=== PATIENT | male | born 1955 | race Two or more races ===

== ENCOUNTER 2025-08-11 16:25 | Emergency (ER) | payer MEDICARE, SELFPAY ==
[2025-08-11] VITALS (8 sets, daily range): BP systolic 142–168; BP diastolic 87–101; PULSE 82–101; RESP 15–19; TEMP 36.7–36.9; O2SAT 96–100; BMI 25.0
--- NOTE | 2025-08-11 16:47 | EKG_ITS ---
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
--- NOTE | 2025-08-11 16:49 | PD.EDADULT ---
ED General RME/HPI General Chief complaint: Nausea/Vomiting/Diarrhea Stated complaint: VOMITTING Time Seen by Provider: 08/11/25 16:44 Arrival date/time: 08/11/25 16:25 CC: Nausea vomiting diarrhea HPI ongoing for 1 week. Last diarrhea was this morning last vomitus was approximately 45 minutes ago. Patient is a renal transplant patient with CKD, and diabetes. Transplant team from [facility]. Patient denies chest pain shortness of breath. EMS report stable vital signs and route. 1 round of Zofran given and route with minimal relief. Patient continues to complain of nausea without active vomiting. No other family members or ill that are around him that he is aware of. Patient states his renal doctor is Dr. Doyle. Related Data Home Medications ?Medication ?Instructions ?Recorded ?Confirmed bumetanide 2 mg tablet 2 mg PO BID 10/11/22 11/22/23 gabapentin 300 mg capsule 300 mg PO BID 10/11/22 11/22/23 levetiracetam 500 mg tablet 500 mg PO BID 10/11/22 11/22/23 calcium acetate(phosphat bind) 667 667 mg PO BID 07/21/23 11/22/23 mg capsule ferrous sulfate 325 mg (65 mg 325 mg PO BID 07/21/23 11/22/23 iron) tablet (FeroSul) valsartan 40 mg tablet 40 mg PO BID 07/21/23 11/22/23 carvedilol 25 mg tablet 12.5 mg PO BID 11/22/23 11/22/23 Previous Rx's ?Medication ?Instructions ?Recorded ondansetron 4 mg disintegrating 4 mg PO Q8H #10 tabs 08/11/25 tablet Allergies Allergy/AdvReac Type Severity Reaction Status Date / Time No Known Allergies Allergy Verified 11/22/23 10:39 Review of Systems Review of Systems Narrative Review of Systems: GEN: No fever, no chills, no weight loss EYES: No discharge, no visual changes, no pain HEENT: No ear pain, no congestion, no sore throat PULM: No shortness of breath, no cough, no congestion CV: No chest pain, no dyspnea on exertion, no palpitations GI: + nausea, + vomiting, + diarrhea, no pain, no constipation : No frequency, no urgency, no dysuria MUSC/SKEL: No joint pain, no back pain SKIN: No rash PSYCH: No hallucinations, no depression HEME/LYMPH: No easy bleeding or bruising tendencies NEURO: No weakness, no headache Past Medical History Past Medical History NEUROLOGIC: Positive Neurological Disorders, Seizures (takes medications) and Peripheral Neuropathy CARDIAC: Positive Cardiac Disorders and Hypertension; Negative Congestive Heart Failure RESPIRATORY: Positive Sleep Apnea (diagnosed 11/2023); Negative Chronic Obstructive Pulmonary Disease (COPD) GASTROINTESTINAL: Positive Gastrointestinal Disorders (dyspepsia,) GENITOURINARY: Positive Genitourinary Disorders, Renal Disease (kidney transplant) and Dialysis (MWF, fistula left arm) MUSCULOSKELETAL: Positive Musculoskeletal Disorders ENT: Positive Cataracts ENDOCRINE: Positive Endocrine Disorders and Diabetes Mellitus Type 2; Negative Diabetes Mellitus Type 1 HEMATOLOGIC: Positive Blood Disorders and Anemia (in past) OTHER HISTORY: Positive Measles; Negative Hospitalization, Falls, Blood Transfusions, Blood Transfusion Reaction, Anesthesia Reactions or Cancer Family History FAMILY HISTORY: Negative Family Anesthesia Reaction Surgical History SURGICAL: Negative Cardiac Surgery, Endocrine Surgery or Joint Replacement Social History SMOKING STATUS: Never smoker SUBSTANCE USE: does not use ED Exam Narrative Physical exam: [General: In mild discomfort but not in any acute distress Head normocephalic HEENT: Eyes pupils are PERRLA EOMs are intact mouth pink dry membranes uvula is midline swallow symmetrical within acceptable limits Neck is supple nontender Chest equal chest rise nontender to palpation Respiratory: Tachypneic, clear to auscultation no wheezes crackles or rubs CV: Rate rhythm is regular no murmurs rubs or clicks Abdomen is soft nontender no masses positive bowel sounds all 4 quadrants Back: No CVA tenderness no spinous process tenderness from cervical spine thoracic and lumbar spine Skin: Intact no petechiae rash induration ulceration or crepitus Extremities: Moving all extremity against resistance cap refill less than 2 seconds neurosensory intact Neuro: Awake alert oriented x3 Glascow coma 15 no focal deficits] Course Course Course Narrative: Blood pressure was noted to be 180/101 at 1831, patient given 20 of hydralazine. Laboratory results show no acute finding requires emergent or immediate intervention. Beta hydroxy was mildly elevated and the creatinine was elevated 1.8 however when compared to creatinine from 2 years ago which was greater than 4. At this time after 2 L the patient states he feels better, nausea is significantly reduced. Will repeat the CMP and beta hydroxy. If there is no worsening we will discharge the patient home. The patient has not had any vomiting or diarrhea since admission to this hospital. Repeat beta hydroxy is unchanged at 1.6, however creatinine has improved from 1.8-1.6 this time patient is good to be discharged home as there is no acute finding requires emergent or immediate intervention. I suspect this is all viral in nature. Quality Measures none Orders Category Date Time Status EKG (ED ONLY) *Do not use* NOW Care 08/11/25 16:47 Completed EKG (ED Only) Stat Exams 08/11/25 16:47 Draft B-Type Natriuretic Peptide Stat Lab 08/11/25 17:00 Completed Beta Hydroxybutyrate Stat Lab 08/11/25 17:00 Completed Beta Hydroxybutyrate Stat Lab 08/11/25 20:38 Completed CBC Stat Lab 08/11/25 17:00 Completed CMP [Comprehensive Metabolic Panel] Stat Lab 08/11/25 20:38 Completed COVID-19 Antigen (In-House) Stat Lab 08/11/25 16:52 Completed Comprehensive Metabolic Panel Stat Lab 08/11/25 17:00 Completed Drug Screen,Urine Stat Lab 08/11/25 18:16 Completed Influenza A & B Rapid Panel Stat Lab 08/11/25 16:52 Completed LDH (Lactate Dehydrogenase) Stat Lab 08/11/25 17:00 Completed Lactic Acid [Lactate (Lactic Acid)] Stat Lab 08/11/25 17:00 Completed Magnesium Stat Lab 08/11/25 17:00 Completed Partial Thromboplastin Time Stat Lab 08/11/25 17:00 Completed Procalcitonin Stat Lab 08/11/25 17:00 Completed Prothrombin Time with INR Stat Lab 08/11/25 17:00 Completed Troponin I Stat Lab 08/11/25 17:00 Completed Urinalysis, C/S if Indicated Stat Lab 08/11/25 18:06 Completed VBG [Venous Blood Gas] Stat Lab 08/11/25 17:00 Completed Ondansetron Inj [Zofran Inj] Med 08/11/25 16:47 Discontinued 4 mg IVP X1 ONE Ringers Lactated 1000 ml [Lactated Ringers] 1,000 ml Med 08/11/25 16:48 Discontinued IV 999 mls/hr Ringers Lactated 1000 ml [Lactated Ringers] 1,000 ml Med 08/11/25 16:48 Discontinued IV 999 mls/hr hydrALAZINE INJ [Apresoline Inj] Med 08/11/25 18:27 Discontinued 20 mg IVP X1 ONE Vital Signs Vital signs: Vital Signs Temperature 98.2 F 08/11/25 16:33 Pulse Rate 82 08/11/25 16:33 Respiratory Rate 18 08/11/25 16:33 Blood Pressure 142/96 H 08/11/25 16:33 Pulse Oximetry (%) 98 08/11/25 16:33 Oxygen Delivery Method Room Air 08/11/25 16:33 Discharge Plan Plan Patient Disposition: HOME (Self Care) Patient condition on transfer: Stable Prescriptions/Referrals Prescriptions/Med Rec: New ondansetron 4 mg tablet,disintegrating 4 mg PO Q8H Qty: 10 0RF No Action carvedilol 25 mg Tablet 12.5 mg PO BID Rx Instructions: must administer with a meal/food bumetanide 2 mg tablet 2 mg PO BID Patient Comments: TAKE 1 TABLET BY MOUTH ONCE DAILY levetiracetam 500 mg tablet 500 mg PO BID Patient Comments: TAKE 1 TABLET BY MOUTH IN THE MORNING AND 2 IN THE EVENING gabapentin 300 mg capsule 300 mg PO BID Patient Comments: TAKE 1 CAPSULE BY MOUTH THREE TIMES DAILY ferrous sulfate [FeroSul] 325 mg (65 mg iron) tablet 325 mg PO BID Patient Comments: TAKE 1 TABLET BY MOUTH TWICE DAILY valsartan 40 mg tablet 40 mg PO BID Patient Comments: TAKE 1 TABLET BY MOUTH TWICE DAILY calcium acetate(phosphat bind) 667 mg capsule 667 mg PO BID Patient Comments: TAKE 1 CAPSULE BY MOUTH THREE TIMES DAILY FOR 1 MONTH Referrals: No Primary/Family,Physician [Primary Care Provider] - In 1 week Problem List Clinical Impression: Nausea & vomiting, Diarrhea Patient/Caregiver Discharge Instructions Education Materials: Self-Care for Vomiting and Diarrhea, ED Diarrhea, Unknown Cause, ED Diet for Vomiting or ... Additional Instructions: Rest drink plenty of fluid take the antinausea medication as prescribed with is worsening of symptoms return to the emergency room for reevaluation. Print Language: Khmer Stand Alone Forms: Madeleine Award Info., Patient Portal Info Letter, Work/School Release PA/SHRIMP CLEANER Supervising Physician PA/SHRIMP CLEANER Supervising Physician: Brian Cooley ENP [facility] Clinical Information Provided by: patient Medical Records reviewed [facility] Meds/Rx considered, not ordered None Labs/Rad/Tests considered, not ordered None Chronic Illness/Social Conditions Explain: Renal transplant diabetes hypertension seizure disorder EKG Interpretation EKG #1: EKG Interpretation: EKG performed at 1655 shows ventricular rate of 93 SC interval 145 QRS of 85 QTc of 384 this is sinus rhythm. Labs Labs: interpreted by ma Lab(s) Interpretation(s): CBC shows no acute leukocytosis anemia thrombocytopenia Coags within excepted limits VBG shows a pH of 7.23 pCO2 45 pO2 of 31 base deficit of 3 CMP shows sodium 134 creatinine 1.8 glucose 147 mag 1.5 no other electrolyte imbalances renal impairment transaminitis or T. bili elevation Troponin is undetectable BNP is undetectable Beta-hydroxybutyrate 1.6 Influenza and COVID are negative Medication Administration(s) Medication Administration History Discontinued Medications Hydralazine HCl (Hydralazine Inj 20 Mg/Ml Vial) 20 mg IVP X1 ONE Stop: 08/11/25 18:28 Last Admin: 08/11/25 18:48 Dose: 20 mg Documented By: BD Lactated Ringer's (Lactated Ringers) 1,000 mls @ 999 mls/hr IV .Q1H1M ONE Stop: 08/11/25 17:48 Last Infusion: 08/11/25 18:11 Dose: Infused Documented By: Admin: 08/11/25 16:58 Dose: 999 mls/hr Documented By: BY Lactated Ringer's (Lactated Ringers) 1,000 mls @ 999 mls/hr IV .Q1H1M ONE Stop: 08/11/25 17:48 Last Infusion: 08/11/25 17:59 Dose: Infused Documented By: Admin: 08/11/25 16:58 Dose: 999 mls/hr Documented By: BY Ondansetron HCl (Ondansetron Inj 2 Mg/Ml Inj 2 Ml) 4 mg IVP X1 ONE; Protocol Stop: 08/11/25 16:48 Last Admin: 08/11/25 16:58 Dose: 4 mg Documented By: BY
[2025-08-11] MEDS: RINGERS LACTATED 1000 ML 1,000 ML 999 ML IV ×2 (16:58)
[2025-08-11] MEDS: ONDANSETRON INJ 2 MG/ML INJ 2 ML 4 MG IVP (16:58)
[2025-08-11 17:11] LABS: Lactate (Lactic Acid) 1.7 mMol/L (0.4-2.0)
[2025-08-11 17:13] LABS: Base Excess, Venous -3 (-3-3); O2 Saturation, Venous 58 % (96-97); PCO2, Venous 45 mmHg (36-56); PO2, Venous 31 mmHg (15-58); pH, Venous 7.32 (7.33-7.66)
[2025-08-11 17:21] LABS: Basophils # (Auto) 0.0 Thou/mm3 (0.0-0.2); Basophils % (Auto) 1 % (0-2.5); Eosinophils # (Auto) 0.0 Thou/mm3 (0.0-0.5); Eosinophils % (Auto) 0 % (0-10); Hematocrit 43.4 % (41.0-53.0); Hemoglobin 15.4 g/dL (13.5-16.0); Immature Granulocytes Auto 0.05 Thou/mm3 (0.00-0.00); Lymphocytes # (Auto) 0.6 Thou/mm3 (1.0-4.8); Lymphocytes % (Auto) 14 % (10-50); Mean Corpuscular HGB Conc 35.5 g/dl (31.0-37.0); Mean Corpuscular Hemoglobin 31.4 pg (25.0-35.0); Mean Corpuscular Volume 89 fL (80-100); Monocytes # (Auto) 0.5 Thou/mm3 (0.0-0.8); Monocytes % (Auto) 12 % (0-12); Neutrophils # (Auto) 3.2 Thou/mm3 (1.8-7.7); Neutrophils % (Auto) 73 % (37-80); Nucleated Red Blood Cell # 0.00 Thou/mm3 (0.00-0.00); Nucleated Red Blood Cell % 0 /100 WBC (0); Platelet Count 179 Thou/mm3 (140-440); RDW Standard Deviation 41.1 fL (35.1-43.9); Red Blood Count 4.90 Miln/mm3 (4.50-5.90); White Blood Count 4.3 Thou/mm3 (3.8-10.6)
[2025-08-11 17:34] LABS: Beta Hydroxybutyrate 1.6 mmol/L (<0.6)
[2025-08-11 17:47] LABS: INR 1.0 (0.9-1.3); Partial Thromboplastin Time 27.3 Seconds (22.0-36.0); Prothrombin Time 11.0 Seconds (9.0-12.2)
[2025-08-11 17:52] LABS: Influenza A Ag Negative; Influenza B Ag Negative
[2025-08-11 17:53] LABS: COVID-19 Antigen (In-House) Negative (Negative)
[2025-08-11 17:54] LABS: B-Type Natriuretic Peptide 32 pg/mL (0-100)
[2025-08-11 18:02] LABS: Alanine Aminotransferase 13 U/L (10-49); Albumin, Serum 4.7 gm/dL (3.4-4.8); Albumin/Globulin Ratio 2.0 (1.2-2.2); Alkaline Phosphatase 77 U/L (46-116); Anion Gap 13 (7-16); Aspartate Amino Transferase 10 U/L (0-34); BUN/Creatinine Ratio 11 Ratio (12-20); Bilirubin,Total 1.0 mg/dL (0.3-1.2); Blood Urea Nitrogen 19 mg/dL (9-23); Calcium 9.8 mg/dL (8.3-10.6); Calcium (Corrected) 9.8 mg/dL (8.5-10.1); Carbon Dioxide 20.8 mMol/L (20.0-31.0); Chloride 100 mMol/L (98-107); Creatinine (Component) 1.8 mg/dL (0.6-1.3); Estimated Creatinine Clearance 40.6 mL/min (>60); Globulin 2.4 gm/dL (2.3-3.5); Glucose 147 mg/dL (74-106); LDH (Lactate Dehydrogenase) 184 U/L (120-246); Magnesium 1.5 mg/dL (1.6-2.6); Osmolality,Calculated 273 (275-295); Potassium 4.5 mMol/L (3.4-5.1); Procalcitonin < 0.04 ng/ml (0.0-0.49); Sodium 134 mMol/L (136-145); Total Protein 7.1 gm/dL (5.7-8.2); Troponin I < 0.020 ng/mL (0.0-0.045); eGFR 40 See Note
[2025-08-11 18:19] LABS: Collection Type, Urine Clean Catch; Squamous Epithelial Cell,Urine 0 /hpf (0-5)
[2025-08-11 18:24] LABS: Bilirubin,Urine Negative (Negative); Blood,Urine Negative (Negative); Clarity,Urine Clear (Clear/Hazy); Color,Urine Colorless (Lt Yel-Yel); Culture Indicated,Urine Not Indicated; Glucose, Urine Negative (Negative); Ketones,Urine 1+ (Negative); Leukocyte Esterase,Urine Negative (Negative); Nitrite,Urine Negative (Negative); PH,Urine 6.0 (5.0-7.0); Protein,Urine Negative (Neg - Trace); RBC,Urine 3 /hpf (0-3); Specific Gravity,Urine 1.010 (1.001-1.035); Urobilinogen,Urine Negative mg/dL (0.0-1.0); WBC,Urine 1 /hpf (0-5)
[2025-08-11 18:33] LABS: Amphetamine/Methamp Scrn,U Negative (Negative); Barbiturate Screen,Urine Negative (Negative); Benzodiazepines Screen,Urine Negative (Negative); Benzoylecgonine Screen, Ur Negative (Negative); Fentanyl Screen,Urine Negative (Negative); Opiate Screen,Urine Negative (Negative); THC Screen,Urine Positive (Negative)
[2025-08-11] MEDS: hydrALAZINE INJ 20 MG/ML VIAL IVP (18:48)
[2025-08-11 20:59] LABS: Beta Hydroxybutyrate 1.6 mmol/L (<0.6)
[2025-08-11 21:14] LABS: Alanine Aminotransferase 10 U/L (10-49); Albumin, Serum 4.1 gm/dL (3.4-4.8); Albumin/Globulin Ratio 1.9 (1.2-2.2); Alkaline Phosphatase 69 U/L (46-116); Anion Gap 11 (7-16); Aspartate Amino Transferase 17 U/L (0-34); BUN/Creatinine Ratio 10 Ratio (12-20); Bilirubin,Total 0.9 mg/dL (0.3-1.2); Blood Urea Nitrogen 15 mg/dL (9-23); Calcium 9.4 mg/dL (8.3-10.6); Calcium (Corrected) 9.4 mg/dL (8.5-10.1); Carbon Dioxide 20.7 mMol/L (20.0-31.0); Chloride 103 mMol/L (98-107); Creatinine (Component) 1.5 mg/dL (0.6-1.3); Estimated Creatinine Clearance 48.7 mL/min (>60); Globulin 2.2 gm/dL (2.3-3.5); Glucose 118 mg/dL (74-106); Osmolality,Calculated 271 (275-295); Potassium 4.7 mMol/L (3.4-5.1); Sodium 135 mMol/L (136-145); Total Protein 6.3 gm/dL (5.7-8.2); eGFR 50 See Note
== END 2025-08-11 21:56 | disposition home or self-care (01) ==
PROVIDERS: Registered Nurse General Practice; Emergency Provider Emergency Medicine
DX: R11.2 Nausea with vomiting, unspecified (principal); R19.7 Diarrhea, unspecified; I10 Essential (primary) hypertension
CPT/HCPCS: 36415; 80053; 80307; 81001; 82010; 82803; 83605; 83615; 83735; 83880; 84145; 84484; 85025; 85610; 85730; 87502; 87811; 93005; 96361; 96374; 96375; 99283; J0360; J2405; J7120

== ENCOUNTER 2025-08-16 01:00 | Emergency (ER) | payer MEDICARE, SELFPAY ==
[2025-08-16] VITALS (13 sets, daily range): BP systolic 123–175; BP diastolic 84–128; PULSE 83–104; RESP 16–19; TEMP 36.6–36.9; O2SAT 97–100; BMI 29.5
--- NOTE | 2025-08-16 01:13 | EKG_ITS ---
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
--- NOTE | 2025-08-16 02:28 | XR_ITS ---
EXAMINATION: PA chest single view TECHNIQUE: Upright PA chest single view Date and time: August 16, 2025, 0253 hours, comparison January 09, 2023 INDICATIONS: Chest pain shortness of breath nausea beginning 1 week ago. FINDINGS: Significant right base pneumonia Small to moderate right pleural fluid Normal heart size Subtle nodular densities in the left upper lobe IMPRESSION: Significant right base pneumonia Recommend AP lordotic chest follow-up to exclude nodular densities in the left upper lobe
--- NOTE | 2025-08-16 02:29 | PD.EDRME ---
Rapid Medical Screening Exam RME Arrival date/time: 08/16/25 01:00 70M with history of CHF< HTN, DM, GERD, seizures, and ESRD s/p kidney transplant presents to ED with continued lower chest/epigastric pain and N/V, as well as ab bloating. Patient was recently here for this was positive marijuana screen. Patient did have some non-bloody diarrhea during previous visit, but not anymore. Chief Complaint: Chest Pain Time Seen by Provider: 08/16/25 01:19 Vital signs: Vital Signs Temperature 98.5 F 08/16/25 01:48 Pulse Rate 88 08/16/25 01:48 Respiratory Rate 16 08/16/25 01:48 Blood Pressure 175/91 H 08/16/25 01:48 Pulse Oximetry (%) 98 08/16/25 01:48 Oxygen Delivery Method Room Air 08/16/25 01:48 Exam: Some ab distention, but no focal tenderness Clinical Impression: ACS vs PE vs CHF exacerbation vs ascites vs pleural effusion vs gastroenteritis
--- NOTE | 2025-08-16 02:31 | XR_ITS ---
Examination: CT abdomen and pelvis without contrast. Coronal 3-D reconstructions. Sagittal 2-D reconstructions. Date and time of exam: August 16, 2025, 0250 hours INDICATIONS: Abdominal distention chest pain epigastric pain nausea and vomiting beginning 1 week ago CTDI: vol (mGy): 7.40 DLP: (mGycm): 477 Technique: Axial images of the abdomen have been obtained, 3 mm slice thickness Intravenous contrast material has not been administered. Low dose protocols were performed. One or more of the following dose reduction techniques were used; automated exposure control, adjustment of the mA and/or KV according to patient size, use of iterative reconstruction technique. 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
[2025-08-16] MEDS: METOCLOPRAMIDE INJ 5 MG/ML VIAL 2 ML 10 MG IM (02:40)
[2025-08-16 03:48] LABS: Basophils # (Auto) 0.0 Thou/mm3 (0.0-0.2); Basophils % (Auto) 0 % (0-2.5); Eosinophils # (Auto) 0.0 Thou/mm3 (0.0-0.5); Eosinophils % (Auto) 0 % (0-10); Hematocrit 44.0 % (41.0-53.0); Hemoglobin 15.4 g/dL (13.5-16.0); Immature Granulocytes Auto 0.08 Thou/mm3 (0.00-0.00); Lymphocytes # (Auto) 0.8 Thou/mm3 (1.0-4.8); Lymphocytes % (Auto) 12 % (10-50); Mean Corpuscular HGB Conc 35.0 g/dl (31.0-37.0); Mean Corpuscular Hemoglobin 31.4 pg (25.0-35.0); Mean Corpuscular Volume 90 fL (80-100); Monocytes # (Auto) 0.9 Thou/mm3 (0.0-0.8); Monocytes % (Auto) 13 % (0-12); Neutrophils # (Auto) 4.8 Thou/mm3 (1.8-7.7); Neutrophils % (Auto) 74 % (37-80); Nucleated Red Blood Cell # 0.00 Thou/mm3 (0.00-0.00); Nucleated Red Blood Cell % 0 /100 WBC (0); Platelet Count 187 Thou/mm3 (140-440); RDW Standard Deviation 42.0 fL (35.1-43.9); Red Blood Count 4.91 Miln/mm3 (4.50-5.90); White Blood Count 6.5 Thou/mm3 (3.8-10.6)
[2025-08-16 04:06] LABS: B-Type Natriuretic Peptide 80 pg/mL (0-100)
--- NOTE | 2025-08-16 04:07 | PRELIM_ITS ---
CT scan of the abdomen and pelvis without intravenous contrast (axial sections with sagittal and coronal reformats) August 16, 2025 0249 hours Clinical History: Ab distention and N/V Comparison: No prior study is available for comparison. Findings: There is peripheral consolidation in the right lower lobe with air bronchograms. There is also peripheral consolidation in the right middle lobe. There is partially loculated right pleural effusion with diffuse smooth pleural thickening. Status post renal transplant in the right iliac fossa. There is a 2cm fluid density cyst is noted in the kidney transplant. Tubular soft tissue density structure is seen anteroinferiorly to the kidney transplant measuring 3.2x2.0cm with focal tiny calcification. Similar structure is seen posterosuperiorly to the kidney transplant. These could be related to the postoperative changes. Atrophic [place] kidneys are noted with small bilateral cysts, the largest measuring up to 1.3cm in the right kidney. Some of the cysts demonstrate increased density could be proteinaceous/ hemorrhagic cyst (Bosniak type 2). Periappendiceal fat stranding bilaterally. The liver, gallbladder, pancreas, spleen, and adrenals are unremarkable on this noncontrast study. No evidence of bowel obstruction. The appendix is within normal limits. There is no mesenteric or retroperitoneal adenopathy. The urinary bladder is incompletely distended limiting evaluation for wall thickening. There is no free fluid or free air. Degenerative changes are identified in the spine. A small fat-containing left inguinal hernia is present. Impression: Status post right kidney transplant. No evidence of renal/ureteric calculus or hydroureteronephrosis. No evidence of bowel obstruction, free air or fluid collection. Right lung pneumonic infiltrates suspected. Associated right pleural effusion with CT features of pleuritis. Other findings as described above. Report Electronically Signed By: Douglas Damico 08/16/2025 4:07:11 AM [EST]
[2025-08-16 04:08] LABS: Alanine Aminotransferase 15 U/L (10-49); Albumin, Serum 4.8 gm/dL (3.4-4.8); Albumin/Globulin Ratio 1.8 (1.2-2.2); Alkaline Phosphatase 79 U/L (46-116); Anion Gap 13 (7-16); Aspartate Amino Transferase 21 U/L (0-34); BUN/Creatinine Ratio 10 Ratio (12-20); Bilirubin,Total 1.0 mg/dL (0.3-1.2); Blood Urea Nitrogen 17 mg/dL (9-23); Calcium 10.0 mg/dL (8.3-10.6); Calcium (Corrected) 10.0 mg/dL (8.5-10.1); Carbon Dioxide 24.5 mMol/L (20.0-31.0); Chloride 100 mMol/L (98-107); Creatinine (Component) 1.7 mg/dL (0.6-1.3); Estimated Creatinine Clearance 47.8 mL/min (>60); Globulin 2.6 gm/dL (2.3-3.5); Glucose 159 mg/dL (74-106); Lipase 28 U/L (12-53); Magnesium 1.4 mg/dL (1.6-2.6); Osmolality,Calculated 278 (275-295); Potassium 4.7 mMol/L (3.4-5.1); Sodium 137 mMol/L (136-145); Total Protein 7.4 gm/dL (5.7-8.2); Troponin I < 0.020 ng/mL (0.0-0.045); eGFR 43 See Note
--- NOTE | 2025-08-16 04:14 | PD.EDADULT ---
ED General RME/HPI General Chief complaint: Chest Pain Stated complaint: CHEST PAIN Time Seen by Provider: 08/16/25 01:19 Arrival date/time: 08/16/25 01:00 RME / HPI RME / HPI narrative: 08/16/25 01:00 70M with history of CHF< HTN, DM, GERD, seizures, and ESRD s/p kidney transplant presents to ED with continued lower chest/epigastric pain and N/V, as well as ab bloating. Patient was recently here for this was positive marijuana screen. Patient did have some non-bloody diarrhea during previous visit, but not anymore. Exam: Some ab distention, but no focal tenderness Impression: ACS vs PE vs CHF exacerbation vs ascites vs pleural effusion vs gastroenteritis Related Data Home Medications ?Medication ?Instructions ?Recorded ?Confirmed bumetanide 2 mg tablet 2 mg PO BID 10/11/22 11/22/23 gabapentin 300 mg capsule 300 mg PO BID 10/11/22 11/22/23 levetiracetam 500 mg tablet 500 mg PO BID 10/11/22 11/22/23 calcium acetate(phosphat bind) 667 667 mg PO BID 07/21/23 11/22/23 mg capsule ferrous sulfate 325 mg (65 mg 325 mg PO BID 07/21/23 11/22/23 iron) tablet (FeroSul) valsartan 40 mg tablet 40 mg PO BID 07/21/23 11/22/23 carvedilol 25 mg tablet 12.5 mg PO BID 11/22/23 11/22/23 Previous Rx's ?Medication ?Instructions ?Recorded ondansetron 4 mg disintegrating 4 mg PO Q8H #10 tabs 08/11/25 tablet Allergies Allergy/AdvReac Type Severity Reaction Status Date / Time No Known Allergies Allergy Verified 08/16/25 01:00 ED Exam Narrative Physical exam: Physical Exam: GENERAL: Awake, answering questions appropriately, appears stated age HEENT: NC/AT. Moist mucosa. PERRLA/EOMI. Continuously hiccuping CARDIO: Mild tachycardia with heart rate of 95, no obvious murmurs, no JVD. PULM: No coughing or visible SOB. Lungs CTA B/L. GI: Abdomen soft, NT/ND, +BS. SKIN/MSK/EXT: No wounds/discoloration/rashes/edema/amputations. +Pedal pulses present B/L. NEURO: Oriented x3, Moves extremities x4, no focal neurologic deficits noted. Course Quality Measures none Orders Category Date Time Status EKG (ED ONLY) *Do not use* NOW Care 08/16/25 01:[address] abdomen pelvis wo con Stat Exams 08/16/25 02:31 Taken EKG (ED Only) Stat Exams 08/16/25 01:13 Draft XR chest 1V portable Stat Exams 08/16/25 02:28 Taken BNP [B-Type Natriuretic Peptide] Stat Lab 08/16/25 03:40 Completed C-Reactive Protein Stat Lab 08/16/25 03:40 Completed CBC Stat Lab 08/16/25 03:40 Completed Comprehensive Metabolic Panel Stat Lab 08/16/25 03:40 Completed Lipase Stat Lab 08/16/25 03:40 Completed Magnesium Stat Lab 08/16/25 03:40 Completed Sed Rate (ESR) Stat Lab 08/16/25 03:40 Completed Troponin I Stat Lab 08/16/25 03:40 Completed Urinalysis, C/S if Indicated Stat Lab 08/16/25 02:28 Ordered CHLORpromAZINE INJ [Thorazine Inj] Med 08/16/25 04:38 Discontinued 25 mg IV X1 ONE Metoclopramide Inj [Reglan Inj] Med 08/16/25 02:28 Discontinued 10 mg IM X1 ONE Pantoprazole Inj [Protonix Inj] Med 08/16/25 04:28 Discontinued 40 mg IVP X1 ONE Vital Signs Vital signs: Vital Signs Temperature 98.5 F 08/16/25 01:48 Pulse Rate 88 08/16/25 01:48 Respiratory Rate 16 08/16/25 01:48 Blood Pressure 175/91 H 08/16/25 01:48 Pulse Oximetry (%) 98 08/16/25 01:48 Oxygen Delivery Method Room Air 08/16/25 01:48 Discharge Plan Plan Patient Disposition: HOME (Self Care) Patient condition on transfer: Stable Prescriptions/Referrals Prescriptions/Med Rec: No Action carvedilol 25 mg Tablet 12.5 mg PO BID Rx Instructions: must administer with a meal/food bumetanide 2 mg tablet 2 mg PO BID Patient Comments: TAKE 1 TABLET BY MOUTH ONCE DAILY levetiracetam 500 mg tablet 500 mg PO BID Patient Comments: TAKE 1 TABLET BY MOUTH IN THE MORNING AND 2 IN THE EVENING gabapentin 300 mg capsule 300 mg PO BID Patient Comments: TAKE 1 CAPSULE BY MOUTH THREE TIMES DAILY ferrous sulfate [FeroSul] 325 mg (65 mg iron) tablet 325 mg PO BID Patient Comments: TAKE 1 TABLET BY MOUTH TWICE DAILY valsartan 40 mg tablet 40 mg PO BID Patient Comments: TAKE 1 TABLET BY MOUTH TWICE DAILY calcium acetate(phosphat bind) 667 mg capsule 667 mg PO BID Patient Comments: TAKE 1 CAPSULE BY MOUTH THREE TIMES DAILY FOR 1 MONTH ondansetron 4 mg tablet,disintegrating 4 mg PO Q8H Qty: 10 0RF Problem List Clinical Impression: Pleuritis Patient/Caregiver Discharge Instructions Print Language: Kiswahili Stand Alone Forms: Madeleine Award Info., Patient Portal Info Letter MD Attestation MD Attestation I, Dr. Davis, have reviewed the history, exam, and assessment of the patient. I have evaluated the patient independently and agree with the plan of care documented by the resident Dr. Suarez. All diagnostic studies were reviewed and discussed. I confirm the diagnosis as documented by the resident. I was present during the Medical Decision Making for this patient. The patient?s plan of care was created between myself and the resident and consistent with our discussion of the patient?s case. MDM Narrative MDM hospital course (for use when minimal MDM required): HPI: 70-year-old male with past medical history of ESRD status post kidney transplant, seizures on Keppra, hypertension presenting to the ED on 08/16 with central chest discomfort, nausea and excessive hiccuping. Patient states that the discomfort started yesterday and he states its like a burning sensation especially worsened with vomiting episodes. Patient also states that he has been having dysphagia to solid foods for about a month. He states that he was referred to a GI specialist but is unsure if the referral has been processed yet. He had a extensive cardiac workup in 2023 prior to his kidney transplant and cardiology cleared him of any significant obstructive coronary artery disease. On examination, please refer to the physical exam stated above. Patient's vitals include mild hypertension with a blood pressure of 175/91, heart rate fluctuating between low 80s to high 90s, temperature 98.5, respiratory of 16 and saturating 98 on room air. Pertinent lab findings Including unremarkable CBC, CMP showing baseline creatinine of 1.7 with eGFR 43, ESR of 8, CRP less than 0.5. Troponin is less than 0.020, BNP of 80. EKG does not show any concerning ST changes. Chest x-ray is pending official read but appears to be right sided costophrenic blunting. CT abdomen pelvis read by teleradiologist preliminary report reads right lung pneumonic infiltration with associated right pleural effusion and features of pleuritis noted. There is also a small fat-containing left inguinal hernia. Differential diagnosis for chest discomfort include: Pneumonitis, GERD, peptic ulcer disease, esophageal spasm, esophageal stricture, less likely to be coronary artery disease as noted above. #Pneumonitis versus dysphagia/GI As noted above, patient does have history of renal transplant on immunosuppressive medications which are a risk factor for pneumonitis Patient's chest pain does not sound typical of any cardiac etiology with negative troponin and EKG largely unremarkable Patient was given a trial of Reglan 10 mg for continuous hiccuping and indigestion-like symptoms without any improvement Plan: Will trial IV Protonix 40 mg and IV chlorpromazine 25 mg at a slow infusion rate and monitor response Patient seen and assessed with attending Dr. Susan Suarez, PGY-2 Internal Medicine - GME Medication Administration(s) Medication Administration History Discontinued Medications Chlorpromazine HCl (Chlorpromazine Inj 25 Mg/Ml Ampule 2ml) 25 mg IV X1 ONE Stop: 08/16/25 04:39 Last Admin: 08/16/25 05:18 Dose: 25 mg Documented By: SR Metoclopramide HCl (Metoclopramide Inj 5 Mg/Ml Vial 2 Ml) 10 mg IM X1 ONE; Protocol Stop: 08/16/25 02:29 Last Admin: 08/16/25 02:40 Dose: 10 mg Documented By: EB Pantoprazole Sodium (Pantoprazole Inj 40 Mg Vial) 40 mg IVP X1 ONE Stop: 08/16/25 04:29 Last Admin: 08/16/25 05:17 Dose: 40 mg Documented By: SR
[2025-08-16 04:36] LABS: C-Reactive Protein < 0.5 mg/dL (0.0-0.9); Sed Rate (ESR) 8 mm/hr (0-20)
[2025-08-16] MEDS: CHLORpromAZINE INJ 25 MG/ML AMPULE 2ML IV (05:18)
[2025-08-16 06:49] LABS: Collection Type, Urine Clean Catch
[2025-08-16 07:49] LABS: Bilirubin,Urine Negative (Negative); Blood,Urine 1+ (Negative); Color,Urine Yellow (Lt Yel-Yel); Culture Indicated,Urine Not Indicated; Glucose, Urine 1+ (Negative); Ketones,Urine 2+ (Negative); Leukocyte Esterase,Urine Negative (Negative); Nitrite,Urine Negative (Negative); PH,Urine 6.0 (5.0-7.0); Protein,Urine 2+ (Neg - Trace); RBC,Urine 8 /hpf (0-3); Specific Gravity,Urine 1.024 (1.001-1.035); Squamous Epithelial Cell,Urine 1 /hpf (0-5); Urobilinogen,Urine Negative mg/dL (0.0-1.0); WBC,Urine 2 /hpf (0-5)
[2025-08-16 07:50] LABS: Clarity,Urine Hazy (Clear/Hazy)
--- NOTE | 2025-08-16 14:39 | PC.NURSE ---
per dr pretty bourne for patient to take transplant medications at this time
--- NOTE | 2025-08-16 15:15 | XR_ITS ---
EXAMINATION: Renal sonography renal transplant kidney Date and time: August 16, 2025, 1611 hours INDICATIONS: Loss of appetite nausea chest pain 1 week, status post renal transplant April 2024 TECHNIQUE AND FINDINGS: Sonographic images pelvis Right transplant kidney 9.9 x 6.3 x 5.3 cm Lower pole 20 x 19 mm cyst Arterial and venous flow are evident on this study No hydronephrosis No renal calculi No bladder mass or bladder calculi, bladder prevoid volume 130 cc IMPRESSION: Intact right transplant kidney, no hydronephrosis
[2025-08-16] MEDS: SODIUM CHLORIDE 0.9% 1000 ML 1,000 ML 999 ML IV (15:23)
--- NOTE | 2025-08-16 17:06 | PD.EDCHEST ---
ED Chest Pain RME/HPI General Chief Complaint: Chest Pain Stated Complaint: CHEST PAIN Time Seen by Provider: 08/16/25 01:19 Arrival date/time: 08/16/25 01:00 Limitations: no limitations RME / HPI RME / HPI narrative: 08/16/25 01:00 70M with history of CHF< HTN, DM, GERD, seizures, and ESRD s/p kidney transplant presents to ED with continued lower chest/epigastric pain and N/V, as well as ab bloating. Patient was recently here for this was positive marijuana screen. Patient did have some non-bloody diarrhea during previous visit, but not anymore. DR. MENDEZ MAIN ED EVALUATION: 70 year old male with history of seizures on Keppra, CHF, ESRD s/p kidney transplant, hypertension presented to the ED early this morning for evaluation of central chest pain. Accompanied by nausea and hiccuping. The patient was evaluated by Dr. Suarez PGY2 and Dr. Davis with plan for the patient to be discharged home after trial of IV Protonix 40 mg and IV chlorpromazine [address] Suarez note. Exam: Some ab distention, but no focal tenderness Impression: ACS vs PE vs CHF exacerbation vs ascites vs pleural effusion vs gastroenteritis Related Data Home Medications ?Medication ?Instructions ?Recorded ?Confirmed bumetanide 2 mg tablet 2 mg PO BID 10/11/22 11/22/23 gabapentin 300 mg capsule 300 mg PO BID 10/11/22 11/22/23 levetiracetam 500 mg tablet 500 mg PO BID 10/11/22 11/22/23 calcium acetate(phosphat bind) 667 667 mg PO BID 07/21/23 11/22/23 mg capsule ferrous sulfate 325 mg (65 mg 325 mg PO BID 07/21/23 11/22/23 iron) tablet (FeroSul) valsartan 40 mg tablet 40 mg PO BID 07/21/23 11/22/23 carvedilol 25 mg tablet 12.5 mg PO BID 11/22/23 11/22/23 Previous Rx's ?Medication ?Instructions ?Recorded ondansetron 4 mg disintegrating 4 mg PO Q8H #10 tabs 08/11/25 tablet levofloxacin 500 mg tablet 500 mg PO Q24H pneumonia 10 days 08/16/25 #10 tabs ondansetron 4 mg disintegrating 4 mg PO Q6H PRN nausea and 08/16/25 tablet vomiting #20 tabs Allergies Allergy/AdvReac Type Severity Reaction Status Date / Time No Known Allergies Allergy Verified 08/16/25 01:00 Review of Systems Review of Systems Systems Reviewed: All systems reviewed, normal except as documented Past Medical History Past Medical History NEUROLOGIC: Positive Neurological Disorders, Seizures, Epilepsy and Peripheral Neuropathy CARDIAC: Positive Cardiac Disorders and Hypertension RESPIRATORY: Positive Sleep Apnea GASTROINTESTINAL: Positive Gastrointestinal Disorders GENITOURINARY: Positive Genitourinary Disorders, Renal Disease and Dialysis MUSCULOSKELETAL: Positive Musculoskeletal Disorders ENT: Positive Cataracts ENDOCRINE: Positive Endocrine Disorders and Diabetes Mellitus Type 2 HEMATOLOGIC: Positive Blood Disorders and Anemia OTHER HISTORY: Positive Measles Social History SMOKING STATUS: Never smoker SUBSTANCE USE: does not use ED Exam General Limitations: Present no limitations General appearance: Present alert and in no apparent distress Head Head exam: Present atraumatic, normocephalic and normal inspection Eye Eye exam: Present normal appearance, PERRL and EOMI ENT ENT exam: Present normal exam, normal oropharynx and mucous membranes moist Neck Neck exam: Present normal inspection, full ROM and trachea midline Chest Chest inspection: Present normal inspection and symmetric chest wall rise Respiratory Respiratory exam: Present other (Diminished breath sounds right base, bibasilar crackles) Cardiovascular Cardiovascular exam: Present regular rate, normal rhythm and normal heart sounds Abdominal Exam Abdominal exam: Present soft, normal bowel sounds and other (right lower abdominal pain which is consistent with transplant kidney ) Extremities Exam Extremities exam: Present normal inspection and full ROM Back Exam Back exam: Present normal inspection and full ROM Neurological Exam Neurological exam: Present alert, oriented X3 and CN II-XII intact Psychiatric Psychiatric exam: Present normal affect and normal mood Skin Skin exam: Present warm, dry, intact and normal color Course Quality Measures none Orders Category Date Time Status EKG (ED ONLY) *Do not use* NOW Care 08/16/25 01:13 Completed Diet Renal Diet 08/16/[address] abdomen pelvis wo con Stat Exams 08/16/25 02:31 Completed EKG (ED Only) Stat Exams 08/16/25 01:13 Draft US renal transplant w dop Stat Exams 08/16/25 15:15 Taken XR chest 1V portable Stat Exams 08/16/25 02:28 Completed BNP [B-Type Natriuretic Peptide] Stat Lab 08/16/25 03:40 Completed C-Reactive Protein Stat Lab 08/16/25 03:40 Completed CBC Stat Lab 08/16/25 03:40 Completed Comprehensive Metabolic Panel Stat Lab 08/16/25 03:40 Completed Lipase Stat Lab 08/16/25 03:40 Completed Magnesium Stat Lab 08/16/25 03:40 Completed Sed Rate (ESR) Stat Lab 08/16/25 03:40 Completed Troponin I Stat Lab 08/16/25 03:40 Completed Urinalysis, C/S if Indicated Stat Lab 08/16/25 06:35 Completed CHLORpromAZINE INJ [Thorazine Inj] Med 08/16/25 04:38 Discontinued 25 mg IV X1 ONE Metoclopramide Inj [Reglan Inj] Med 08/16/25 02:28 Discontinued 10 mg IM X1 ONE Pantoprazole Inj [Protonix Inj] Med 08/16/25 04:28 Discontinued 40 mg IVP X1 ONE Sodium Chloride 0.9% 1000 ml [Ns] 1,000 ml Med 08/16/25 15:15 Discontinued IV 999 mls/hr levoFLOXacin [Levaquin] Med 08/16/25 15:15 Discontinued 500 mg PO X1 ONE Vital Signs Vital signs: Vital Signs Temperature 98.5 F 08/16/25 01:48 Pulse Rate 88 08/16/25 01:48 Respiratory Rate 16 08/16/25 01:48 Blood Pressure 175/91 H 08/16/25 01:48 Pulse Oximetry (%) 98 08/16/25 01:48 Oxygen Delivery Method Room Air 08/16/25 01:48 Pulse ox is 98% on room air which is adequate. Chest Pain MDM Narrative MDM Narrative:: Gabi Collins am scribing for and in the presence of Dr. Mendez. From Dr. Suarez's note 70-year-old male with past medical history of ESRD status post kidney transplant, seizures on Keppra, hypertension presenting to the ED on 08/16 with central chest discomfort, nausea and excessive hiccuping. Patient states that the discomfort started yesterday and he states its like a burning sensation especially worsened with vomiting episodes. Patient also states that he has been having dysphagia to solid foods for about a month. He states that he was referred to a GI specialist but is unsure if the referral has been processed yet. He had a extensive cardiac workup in 2023 prior to his kidney transplant and cardiology cleared him of any significant obstructive coronary artery disease. On examination, please refer to the physical exam stated above. Patient's vitals include mild hypertension with a blood pressure of 175/91, heart rate fluctuating between low 80s to high 90s, temperature 98.5, respiratory of 16 and saturating 98 on room air. Pertinent lab findings Including unremarkable CBC, CMP showing baseline creatinine of 1.7 with eGFR 43, ESR of 8, CRP less than 0.5. Troponin is less than 0.020, BNP of 80. EKG does not show any concerning ST changes. Chest x-ray is pending official read but appears to be right sided costophrenic blunting. CT abdomen pelvis read by teleradiologist preliminary report reads right lung pneumonic infiltration with associated right pleural effusion and features of pleuritis noted. There is also a small fat-containing left inguinal hernia. Differential diagnosis for chest discomfort include: Pneumonitis, GERD, peptic ulcer disease, esophageal spasm, esophageal stricture, less likely to be coronary artery disease as noted above. #Pneumonitis versus dysphagia/GI As noted above, patient does have history of renal transplant on immunosuppressive medications which are a risk factor for pneumonitis Patient's chest pain does not sound typical of any cardiac etiology with negative troponin and EKG largely unremarkable Patient was given a trial of Reglan 10 mg for continuous hiccuping and indigestion-like symptoms without any improvement Plan: Will trial IV Protonix 40 mg and IV chlorpromazine 25 mg at a slow infusion rate and monitor response Patient seen and assessed with attending Dr. Susan Suarez, PGY-2 Internal Medicine - GME 1520p: Through ED course, the patient has not received any IV fluids. Imaging performed shows right-sided pneumonia with pleural effusion. I reviewed labs and creatinine today at 03:40 AM was 1.7 compared to creatinine of 1.5 on 08/11/2025. States his symptoms have resolved. Plan to order IV fluids. Also plan to order renal ultrasound and DC home if unremarkable. Diagnosis: Pneumonia S/p renal transplant Renal insufficiency Nausea and vomiting Patient data External records reviewed:: [facility] previous records Clinical information provided by:: patient Social determinants that could affect healthcare access:: none Patient has the following chronic illnesses:: seizures on Keppra, CHF, ESRD s/p kidney transplant, hypertension How is presenting disease/condition affected by chronic disease/condition?: exacerbated by Evaluation data The following diagnostics were reviewed and interpreted by me:: lab results and radiology exam(s) Lab and/or radiology exams considered but not ordered:: None Interpretation Summary: Ordering Physician: Kai Turk PA-C Date of Service: 08/16/25 Procedure(s): XR chest 1V portable Accession Number(s): [id number] cc: Selvin Bell MD; NO PRIMARY/FAMILY,PHYSICIAN; Kai Turk PA-C~ EXAMINATION: PA chest single view TECHNIQUE: Upright PA chest single view Date and time: August 16, 2025, 0253 hours, comparison January 09, 2023 INDICATIONS: Chest pain shortness of breath nausea beginning 1 week ago. FINDINGS: Significant right base pneumonia Small to moderate right pleural fluid Normal heart size Subtle nodular densities in the left upper lobe IMPRESSION: Significant right base pneumonia Recommend AP lordotic chest follow-up to exclude nodular densities in the left upper lobe Dictated By: Selvin Bell MD Signed By: <Electronically signed by Selvin Bell MD in OV> 08/16/25 0753 Ordering Physician: Kai Turk PA-C Date of Service: 08/16/25 Procedure(s): CT abdomen pelvis wo con Accession Number(s): [id number] cc: Selvin Bell MD; NO PRIMARY/FAMILY,PHYSICIAN; Kai Turk PA-C~ Examination: CT abdomen and pelvis without contrast. Coronal 3-D reconstructions. Sagittal 2-D reconstructions. Date and time of exam: August 16, 2025, 0250 hours INDICATIONS: Abdominal distention chest pain epigastric pain nausea and vomiting beginning 1 week ago CTDI: vol (mGy): 7.40 DLP: (mGycm): 477 Technique: Axial images of the abdomen have been obtained, 3 mm slice thickness Intravenous contrast material has not been administered. Low dose protocols were performed. One or more of the following dose reduction techniques were used; automated exposure control, adjustment of the mA and/or KV according to patient size, use of iterative reconstruction technique. Findings: Right base pneumonia with mild right pleural fluid No visualized liver or splenic lesion No gallstones No pancreatic or adrenal mass Atrophic [place] kidneys with scarring and perinephric stranding Aorta normal size Normal appendix No bowel obstruction Right transplant kidney, no hydronephrosis or renal calculi, transplant kidney cyst, 21 mm Probable postoperative change anterior and posterior to the transplant kidney Urinary bladder wall thickening up to 7 mm Fat-containing left inguinal hernia Prominent osteopenia IMPRESSION: Right base pneumonia with mild right pleural fluid Atrophic [place] kidneys with significant scarring Normal appendix No bowel obstruction Cystitis pattern Dictated By: Selvin Bell MD Signed By: <Electronically signed by Selvin Bell MD in OV> 08/16/25 0727 Ordering Physician: Kory Mendez MD Date of Service: 08/16/25 Procedure(s): US renal transplant w dop Accession Number(s): [id number] cc: Kory Mendez MD; Selvin Bell MD; NO PRIMARY/FAMILY,PHYSICIAN~ EXAMINATION: Renal sonography renal transplant kidney Date and time: August 16, 2025, 1611 hours INDICATIONS: Loss of appetite nausea chest pain 1 week, status post renal transplant April 2024 TECHNIQUE AND FINDINGS: Sonographic images pelvis Right transplant kidney 9.9 x 6.3 x 5.3 cm Lower pole 20 x 19 mm cyst Arterial and venous flow are evident on this study No hydronephrosis No renal calculi No bladder mass or bladder calculi, bladder prevoid volume 130 cc IMPRESSION: Intact right transplant kidney, no hydronephrosis Dictated By: Selvin Bell MD Signed By: <Electronically signed by Selvin Bell MD in OV> 08/16/25 1726 Medications / Prescriptions Medications or Prescriptions considered but not ordered:: None Medication administrations:: Medication Administration History Discontinued Medications Chlorpromazine HCl (Chlorpromazine Inj 25 Mg/Ml Ampule 2ml) 25 mg IV X1 ONE Stop: 08/16/25 04:39 Last Admin: 08/16/25 05:18 Dose: 25 mg Documented By: SR Sodium Chloride (Ns) 1,000 mls @ 999 mls/hr IV .Q1H1M ONE Stop: 08/16/25 16:15 Last Infusion: 08/16/25 16:24 Dose: Infused Documented By: Admin: 08/16/25 15:23 Dose: 999 mls/hr Documented By: DB Levofloxacin (Levofloxacin 250 Mg Tablet) 500 mg PO X1 ONE Stop: 08/16/25 15:16 Last Admin: 08/16/25 15:23 Dose: 500 mg Documented By: DB Metoclopramide HCl (Metoclopramide Inj 5 Mg/Ml Vial 2 Ml) 10 mg IM X1 ONE; Protocol Stop: 08/16/25 02:29 Last Admin: 08/16/25 02:40 Dose: 10 mg Documented By: EB Pantoprazole Sodium (Pantoprazole Inj 40 Mg Vial) 40 mg IVP X1 ONE Stop: 08/16/25 04:29 Last Admin: 08/16/25 05:17 Dose: 40 mg Documented By: SR See above Consultations Consultation(s) initiated? (list below): No Diagnosis Most likely diagnosis given after review of the tests above:: Pneumonia Admission Indicated Admission indicated?: not indicated Admission Request Was there a request for admission?: No Disposition Plan Disposition Plan: Discharge Discharge Attestation Discharge Attestation: The patient and all family members were given an opportunity to ask questions and understood the discharge instructions. Discharge instructions specifically effects, indications for sooner follow up or return to the emergency department, and the expected course of current diagnosis. Patient condition: Stable Discharge Plan Plan Patient Disposition: HOME (Self Care) Patient condition on transfer: Stable Prescriptions/Referrals Prescriptions/Med Rec: New levofloxacin 500 mg tablet 500 mg PO Q24H MDD 1 10 Days Qty: 10 0RF ondansetron 4 mg tablet,disintegrating 4 mg PO Q6H MDD 4 PRN (Reason: nausea and vomiting) Qty: 20 0RF No Action carvedilol 25 mg Tablet 12.5 mg PO BID Rx Instructions: must administer with a meal/food bumetanide 2 mg tablet 2 mg PO BID Patient Comments: TAKE 1 TABLET BY MOUTH ONCE DAILY levetiracetam 500 mg tablet 500 mg PO BID Patient Comments: TAKE 1 TABLET BY MOUTH IN THE MORNING AND 2 IN THE EVENING gabapentin 300 mg capsule 300 mg PO BID Patient Comments: TAKE 1 CAPSULE BY MOUTH THREE TIMES DAILY ferrous sulfate [FeroSul] 325 mg (65 mg iron) tablet 325 mg PO BID Patient Comments: TAKE 1 TABLET BY MOUTH TWICE DAILY valsartan 40 mg tablet 40 mg PO BID Patient Comments: TAKE 1 TABLET BY MOUTH TWICE DAILY calcium acetate(phosphat bind) 667 mg capsule 667 mg PO BID Patient Comments: TAKE 1 CAPSULE BY MOUTH THREE TIMES DAILY FOR 1 MONTH ondansetron 4 mg tablet,disintegrating 4 mg PO Q8H Qty: 10 0RF Problem List Clinical Impression: Pneumonia Patient/Caregiver Discharge Instructions Discharge Activity: activity as tolerated Additional Instructions: Take antibiotics as directed. Rest each day at home while on antibiotics. Be sure to drink adequate fluids. Follow-up with your transplant team and the transplant nurse to let them know that you are on antibiotics for pneumonia. Follow-up with your transplant team as scheduled. Print Language: Portuguese Stand Alone Forms: [facility] Award Info., Patient Portal Info Letter
== END 2025-08-16 18:35 | disposition home or self-care (01) ==
PROVIDERS: Physician Assistant; Emergency Provider Family Medicine
DX: J18.9 Pneumonia, unspecified organism (principal); I13.2 Hypertensive heart and chronic kidney disease with heart failure and with stage 5 chronic kidney disease, or end stage renal disease; E11.22 Type 2 diabetes mellitus with diabetic chronic kidney disease; N18.6 End stage renal disease; R11.2 Nausea with vomiting, unspecified; Z94.0 Kidney transplant status
CPT/HCPCS: 36415; 71045; 74176; 76776; 80053; 81001; 83690; 83735; 83880; 84484; 85025; 85652; 86140; 93005; 96361; 96372; 96374; 99284; J2470; J2765; J3230; J7030; A9270

== ENCOUNTER → 2025-08-26 | Outpatient (CLI) | payer MEDICARE, SELFPAY ==
--- NOTE | 2025-08-26 12:20 | XR_ITS ---
EXAMINATION: PA lateral chest 2 views TECHNIQUE: Upright PA lateral chest 2 views Date and time: , 2024, 1325 hours, comparison August 16, 2025 INDICATIONS: Pneumonia history FINDINGS: Persistent pneumonia right base No left lung pneumonia Normal heart size IMPRESSION: No improvement in right base pneumonia
== END | disposition home or self-care (01) ==
PROVIDERS: PCP Nurse Practitioner Family; Referring Provider Nurse Practitioner Family; Visit Provider Nurse Practitioner Family
DX: J18.9 Pneumonia, unspecified organism (principal)
CPT/HCPCS: 71046